=== PATIENT | male | born 2000 | race Hispanic/Latino ===

== ENCOUNTER 2021-02-24 13:10 | Day surgery (SDC) | payer OTHER, SELFPAY ==
[2021-02-24] MEDS ORDERED: Piperacillin/Tazobactam 3.375 GM VIAL ONE (14:07)
[2021-02-24] MEDS ORDERED: Sodium Chloride 0.9% 100 ML ONE (14:08)
[2021-02-24] MEDS ORDERED: Bupivacaine 0.25% HCL 30 ML VIAL ONE (15:00)
[2021-02-24] MEDS ORDERED: Lidocaine 1% w/Epinephrine 1:100K 20 ML VIAL ONE (15:00)
[2021-02-24] MEDS ORDERED: Fentanyl 100 MCG/2 ML VIAL ONE (15:08)
[2021-02-24] MEDS ORDERED: Midazolam HCl 2 mg/2 ml Vial ONE (15:08)
[2021-02-24] MEDS ORDERED: Rocuronium Bromide 10 MG/ML (10ML VIAL) ONE (15:26)
[2021-02-24] MEDS ORDERED: Succinylcholine 200 MG/10 ml SYRINGE FS ONE (15:26)
[2021-02-24] MEDS ORDERED: PROPOFOL 200 MG/20 ML VIAL ONE (15:26)
[2021-02-24] MEDS ORDERED: Glycopyrrolate 0.2 MG/ML 5 ML SYRINGE ONE (15:26)
[2021-02-24] MEDS ORDERED: Ketorolac Tromethamine 30 MG/ML VIAL ONE (15:26)
[2021-02-24] MEDS ORDERED: Ondansetron PF 4 MG/2 ML Vial ONE (15:26)
[2021-02-24] MEDS ORDERED: HYDROcodone/Acetaminophen 5/325 mg Tablet ONE (16:56)
== END 2021-02-24 17:53 | disposition home or self-care (01) ==
LOC: SDC 13:10
PROVIDERS: ATTEND Surgery
PROC: 0DTJ4ZZ Resection of Appendix, Percutaneous Endoscopic Approach (ICD-10-PCS; principal; 2021-02-24)
DX: K35.80 Unspecified acute appendicitis (principal)
CPT/HCPCS: 88304; J1885; J2250; J2405; J2543; J2704; J3010; J3490; S0020